=== PATIENT | female | born 1985 | race Caucasian/White ===

== ENCOUNTER → 2020-10-31 | Outpatient (CLI) | payer BC ==
--- NOTE | 2020-10-31 17:06 | CT ---
EXAMINATION TYPE: CT ankle RT wo con DATE OF EXAM: 10/31/2020 COMPARISON: None HISTORY: right ankle pain, no injury CT DLP: 239.1 mGycm Automated exposure control for dose reduction was used. TECHNIQUE: Axial images 2 mm thick sections through the right ankle. FINDINGS: No acute fractures are evident. Ankle mortise appears intact. Joint spaces preserved. Three-D reconstructed images performed on a separate computer by the technologist are reviewed. Soft tissues appear unremarkable. IMPRESSION: NO ACUTE OSSEOUS ABNORMALITY.
== END | disposition home or self-care (01) ==
LOC: RADCTMAIN 16:41
PROVIDERS: ATTEND Orthopaedic Surgery
DX: S92.024A Nondisplaced fracture of anterior process of right calcaneus, initial encounter for closed fracture (principal); S93.401A Sprain of unspecified ligament of right ankle, initial encounter